=== PATIENT | male | born 1950 | race Caucasian/White ===

== ENCOUNTER 2019-11-11 10:59 | Outpatient (RCR) | payer MEDICARE | END 2020-02-09 | disposition home or self-care (01) | LOC: CARD 10:59 | PROVIDERS: ATTEND Internal Medicine Interventional Cardiology | DX: I48.0 Paroxysmal atrial fibrillation (principal); I49.3 Ventricular premature depolarization; I49.1 Atrial premature depolarization; R00.0 Tachycardia, unspecified ==

== ENCOUNTER 2023-01-21 05:43 | Outpatient (CLI) | payer MEDICARE ==
[~2023-01-21] VITALS: Ht 185.4 cm; Wt 96.2 kg
[2023-01-21] MEDS ORDERED: LOSA100T57 PO (09:21)
[2023-01-21] MEDS ORDERED: APIX2.5T PO (09:21)
[2023-01-21] MEDS ORDERED: MTP100TCR PO (09:21)
[2023-01-21] MEDS ORDERED: FURO20TA4 PO (09:21)
[2023-01-21] MEDS ORDERED: SPIR25TA PO (09:21)
== END 2023-01-21 09:22 | disposition home or self-care (01) ==
LOC: PREOP 05:43
PROVIDERS: ATTEND Surgery
DX: Z01.818 Encounter for other preprocedural examination (principal)

== ENCOUNTER 2023-01-27 11:57 | Day surgery (SDC) | payer MEDICARE ==
[~2023-01-27] VITALS: Ht 185.4 cm; Wt 96.2 kg
[~2023-01-27 11:57] MED LIST: APIX2.5T PO; FURO20TA4 PO; LOSA100T57 PO; MTP100TCR PO; SPIR25TA PO
[2023-01-27] MEDS ORDERED: LACTATED RINGERS 1,000 ML IV STA (12:01)
[2023-01-27 12:25] VITALS: BP 116/68
--- NOTE | 2023-01-27 12:47 | Progress Note-Pre Operative ---
Pre-Operative Progress Note Date H&P Reviewed: Jan 27, 2023 Time H&P Reviewed: 12:47 History & Physical: H&P Reviewed, Patient Examed, No changes noted Pre-Operative Diagnosis: Screening colonoscopy MO COX DO Jan 27, 2023 12:47
[2023-01-27] MEDS ORDERED: PROPOFOL INJECTION 50 ML IV ONE (13:23)
[2023-01-27 14:00] VITALS: BP 105/59
--- NOTE | 2023-01-27 14:00 | Progress Note-Post Operative ---
Post-Operative Progess Note Surgeon (s)/Nail Making Machine Setter (s) Surgeon MO COX DO Nail Making Machine Setter: na Pre-Operative Diagnosis Screening colonoscopy Post-Operative Diagnosis Cecal, ascending, transverse, and sigmoid polyps Procedure & Operative Findings Date of Procedure 01/27/23 Procedure Performed/Findings colonoscopy with hot biopsy polypectomy x4 and snare polypectomy x 1 Anesthesia Type per [facility] Estimated Blood Loss Estimated blood loss (mL): none Specimens/Packing Specimens Removed Cecal polyp biopsy x1, ascending polyp biopsy x1, transverse polyp x 1, sigmoid snare polypectomy x 1 MO COX DO Jan 27, 2023 14:00
--- NOTE | 2023-01-27 14:02 | Discharge Inst-Simple/Standard ---
Discharge Inst-Standard Patient Instructions/Follow Up Plan of Care/Instructions/FU: 2 weeks Natanael Activity as Tolerated: Yes Discharge Diet: Regular Diet MO COX DO Jan 27, 2023 14:02
[2023-01-27 14:10] VITALS: BP_SYST 100; BP_SYST 120; BP_DIAS 55; BP_DIAS 59
[2023-01-27 14:30] VITALS: BP 100/55
--- NOTE | 2023-01-27 15:02 | Anesthesia-General Post-Op ---
MAC Patient Condition Mental Status/LOC: Same as Preop Cardiovascular: Satisfactory Nausea/Vomiting: Absent Respiratory: Satisfactory Pain: Controlled Complications: Absent Post Op Complications Complications None Follow Up Care/Instructions Patient Instructions None needed. Anesthesiology Discharge Order Discharge Order Patient was doing well after the procedure with no complaints, stable vital signs, no apparent adverse anesthesia problems. No complications reported per nursing. BALTAZAR VIEIRA DO Jan 27, 2023 15:02
--- NOTE | 2023-01-27 18:28 | OPERATIVE REPORT ---
DATE OF SERVICE: 01/27/2023 PREOPERATIVE DIAGNOSIS: Screening colonoscopy. POSTOPERATIVE DIAGNOSIS: Colon polyps. PROCEDURE: Colonoscopy with hot biopsy polypectomy x4 and snare polypectomy x1. SURGEON: Mo Santoyo DO ANESTHESIA: Per MDA. ESTIMATED BLOOD LOSS: None. COMPLICATIONS: None. INDICATIONS: The patient is a 73-year-old male, needing colonoscopy. He understands risks and benefits of procedure and wished to proceed. Consent was signed in chart. DESCRIPTION OF PROCEDURE: The patient was taken to the endoscopy suite, placed in the left lateral recumbent position. Timeout was performed. Digital rectal exam was performed. No palpable polyps, masses or ulcerations. Had some internal hemorrhoids. Scope was inserted in the rectum, advanced all the way to the cecum with minimal difficulty. Prep was adequate. In the cecum, a small polyp was present, which hot biopsy polypectomy was performed. Scope was then continuously retracted back in the ascending colon, 2 polyps were present were next to each other, which hot biopsy polypectomy was performed. Scope was then continuously retracted back to the transverse colon where another small polyp was present, which hot biopsy polypectomy was performed. Scope was then continuously retracted back. No polyps, masses or ulcerations within the remainder of the transverse and descending colon. In the sigmoid colon, a large pedunculated polyp was present, which snare polypectomy was performed. Scope was used to retract this all the way out. Scope was then reinserted back to the point of the pedunculated polyp and then slowly retracted back. No polyps, masses or ulcerations within the remainder of the sigmoid colon and rectum. The scope was retroflexed noting the internal hemorrhoids, noting no other pathology. Scope was returned to its normal position, slowly withdrawn until completely removed. The patient tolerated the procedure well without complications, taken to recovery room in stable condition. RECOMMENDATIONS: Due to the size of polyp, would recommend repeat colonoscopy in year for reevaluation. Any issues before that, be seen at that time. He will follow up on pathology in 2 weeks. Job ID: [id number] DocumentID: [id number] Dictated Date: 01/27/2023 14:01:09 Newspaper Peddler Date: 01/27/2023 18:26:00 Dictated By: MO SANTOYO DO
== END 2023-01-27 14:38 | disposition home or self-care (01) ==
LOC: ENDO 11:57
PROVIDERS: ATTEND Surgery
DX: Z12.11 Encounter for screening for malignant neoplasm of colon (principal); D12.0 Benign neoplasm of cecum; D12.2 Benign neoplasm of ascending colon; D12.3 Benign neoplasm of transverse colon; D12.5 Benign neoplasm of sigmoid colon; K64.8 Other hemorrhoids; F17.210 Nicotine dependence, cigarettes, uncomplicated; E66.9 Obesity, unspecified; I48.91 Unspecified atrial fibrillation; Z79.01 Long term (current) use of anticoagulants; Z68.27 Body mass index [BMI] 27.0-27.9, adult